=== PATIENT | female | born 1965 | race Caucasian/White ===

== ENCOUNTER → 2017-05-11 | Outpatient (CLI) | payer OTHER | END | disposition home or self-care (01) | LOC: CFH 08:19 → EDSTATUS 08:45 | PROVIDERS: ATTEND Orthopaedic Surgery | DX: S83.242A Other tear of medial meniscus, current injury, left knee, initial encounter (principal); X58.XXXA Exposure to other specified factors, initial encounter; Y93.89 Activity, other specified; Y92.89 Other specified places as the place of occurrence of the external cause; Y99.8 Other external cause status ==

== ENCOUNTER → 2017-09-24 | Outpatient (CLI) | payer OTHER ==
[~2017-09-24] MED LIST: CHOL5000 PO; MULT1TAB60 PO; PROG100C16 PO; VITAMIN PO; Vitamin A PO; [UNRECOGNIZED DRUG - REMARK] INJ
== END ==
LOC: STAR 09:38
PROVIDERS: ATTEND Orthopaedic Surgery
DX: Z02.9 Encounter for administrative examinations, unspecified (principal)

== ENCOUNTER 2017-10-01 16:40 | Day surgery (SDC) | payer OTHER ==
[~2017-10-01] VITALS: Ht 160 cm; Wt 62.7 kg
[~2017-10-01 16:40] MED LIST changes: +LIDOCAINE 1%, 2ML ONE
[2017-10-01] MEDS ORDERED: ROPIvacaine/PF 0.5%, 30 ML ONE (16:50)
[2017-10-01] MEDS ORDERED: EPINEPHRINE 1 MG/ML, 1ML ONE (16:50)
[2017-10-01] MEDS ORDERED: LIDOCAINE/PF 1%, 30ML ONE (16:50)
[2017-10-01] MEDS ORDERED: LACTATED RINGERS 1,000 ML IV SCH (17:10)
[2017-10-01 17:11] VITALS: BP 138/91
[2017-10-01] MEDS ORDERED: MIDAZOLAM 1 MG/ML, 2ML ONE (17:22)
[2017-10-01] MEDS ORDERED: FENTANYL PF 250 MCG/5ML ONE (17:24)
[2017-10-01] MEDS ORDERED: CEFAZOLIN 1,000 MG ONE (17:25)
[2017-10-01] MEDS ORDERED: ONDANSETRON 2MG/ML, 2ML ONE (17:25)
[2017-10-01] MEDS ORDERED: PROPOFOL 10 MG/ML, 20ML ONE (17:25)
[2017-10-01] MEDS ORDERED: DEXAMETHASONE 4 MG/ML, 1ML ONE (17:25)
[2017-10-01] MEDS ORDERED: LIDOCAINE GEL 2%, 5ML ONE (17:27)
[2017-10-01] MEDS ORDERED: LIDOCAINE 1%, 2ML SQ PRN (17:30)
[2017-10-01] MEDS ORDERED: HYDROmorphone 1 MG/ML, 1ML ONE (17:49)
[2017-10-01] MEDS ORDERED: OXYcodone 5 MG/5 ML ORAL.SOL UDC ONE (18:20)
[2017-10-01] MEDS ORDERED: FENTANYL PF 100 MCG/2ML ONE (18:20)
[2017-10-01] MEDS: FENTANYL PF 100 MCG/2ML IV PRN ×2 (18:24→18:37)
[2017-10-01] MEDS ORDERED: PROMETHAZINE 25 MG/ML, 1ML IV PRN (18:30)
[2017-10-01] MEDS ORDERED: OXYcodone 5 MG/5 ML ORAL.SOL UDC PO PRN (18:30)
[2017-10-01] MEDS ORDERED: HYDROmorphone 1 MG/ML, 1ML IV PRN (18:30)
[2017-10-01] MEDS ORDERED: ACETAMINOPHEN 325 MG TABLET PO PRN (18:30)
[2017-10-01] MEDS ORDERED: HYDROcodone/APAP 7.5-325MG/15ML UDC PO PRN (18:30)
[2017-10-01] MEDS ORDERED: ONDANSETRON 2MG/ML, 2ML IVPush PRN (18:30)
== END 2017-10-01 20:45 | disposition home or self-care (01) ==
LOC: OR 16:40 → 4NOR 19:34 → OR 20:45
PROVIDERS: ATTEND Orthopaedic Surgery
DX: S83.232A Complex tear of medial meniscus, current injury, left knee, initial encounter (principal); X58.XXXA Exposure to other specified factors, initial encounter; Y93.89 Activity, other specified; Y92.89 Other specified places as the place of occurrence of the external cause; Y99.8 Other external cause status; M94.262 Chondromalacia, left knee; M65.862 Other synovitis and tenosynovitis, left lower leg
CPT/HCPCS: 29881; J0171; J0690; J1100; J1170; J2250; J2405; J2704; J2795; J3010; J3490; J7120

== ENCOUNTER → 2018-01-02 | Outpatient (CLI) | payer OTHER ==
[~2018-01-02] MED LIST changes: -LIDOCAINE 1%, 2ML ONE
[2018-01-02 09:12] LABS: BASOPHILS # (AUTO) 0.04 x10^3/uL (0-0.1); BASOPHILS % (AUTO) 1 % (0-1); EOSINOPHILS # (AUTO) 0.06 x10^3/uL (0-0.4); EOSINOPHILS % (AUTO) 1 % (1-7); LYMPHOCYTES # (AUTO) 1.69 x10^3/uL (1-3.4); LYMPHOCYTES % (AUTO) 27 % (22-44); MD NO; MEAN CORPUSCULAR HEMOGLOBIN 33.6 pg (27.0-34.8); MEAN CORPUSCULAR HGB CONC 34.9 g/dL (32.4-35.8); MEAN CORPUSCULAR VOLUME 96.1 fL (80-100); MEAN PLATELET VOLUME 8.4 fL (7.4-10.4); MONOCYTES % (AUTO) 8 % (2-9); NEUTROPHILS # (AUTO) 3.93 x10^3/uL (1.8-6.8); NEUTROPHILS % (AUTO) 63 % (42-75); PLATELET COUNT 360 x10^3/uL (130-400); RED BLOOD COUNT 4.42 x10^6/uL (3.82-5.3); RED CELL DISTRIBUTION WIDTH 12.3 % (9.6-15.2)
[2018-01-02 09:24] LABS: ALBUMIN 3.9 g/dL (3.4-5.0); ANION GAP 9 mmol/L (5-15); CALCIUM 9.1 mg/dL (8.5-10.1); CHLORIDE 105 mmol/L (98-107)
[2018-01-02 09:49] LABS: ALANINE AMINOTRANSFERASE 27 U/L (12-78); ALKALINE PHOSPHATASE 100 U/L (45-117); BILIRUBIN,TOTAL 0.6 mg/dL (0.2-1.0); CHOL/HDL RATIO 3.6; CHOLESTEROL, TOTAL 209 mg/dL (140-239); CREATININE 0.67 mg/dL (0.55-1.02); HDL CHOLESTEROL (DIRECT) 58 mg/dL (40-60); TOTAL PROTEIN 7.8 g/dL (6.4-8.2); TRIGLYCERIDES 100 mg/dL (50-200); VLDL CHOLESTEROL 20 mg/dL (0-25)
[2018-01-02 09:50] LABS: HDL CHOL % 28 % (28-40); LDL CHOLESTEROL,CALCULATED 131 mg/dL (54-169); LDL/HDL RATIO 2.3 (0.5-3.0)
== END | disposition home or self-care (01) ==
LOC: LAB 08:44
PROVIDERS: ATTEND Specialist
DX: E55.9 Vitamin D deficiency, unspecified (principal); E34.9 Endocrine disorder, unspecified; E78.5 Hyperlipidemia, unspecified; R53.83 Other fatigue
CPT/HCPCS: 36415; 80053; 80061; 82306; 82607; 82670; 83001; 84403; 84436; 84443; 84481; 85025; 86376

== ENCOUNTER → 2018-06-18 | Outpatient (CLI) | payer OTHER | END | disposition home or self-care (01) | LOC: CFH 13:30 | PROVIDERS: ATTEND Physician Assistant Surgical | DX: S83.231A Complex tear of medial meniscus, current injury, right knee, initial encounter (principal); M25.461 Effusion, right knee; M71.21 Synovial cyst of popliteal space [Baker], right knee ==

== ENCOUNTER → 2018-08-14 | Outpatient (CLI) | payer OTHER ==
[~2018-08-14] MED LIST changes: +ACET-1600 PO; +CEFAZOLIN 1,000 MG ONE; +DEXAMETHASONE 4 MG/ML, 1ML ONE; +FENTANYL PF 100 MCG/2ML ONE; +IBUP-1223 PO; +MIDAZOLAM 1 MG/ML, 2ML ONE; +ONDANSETRON 2MG/ML, 2ML ONE; +PROPOFOL 10 MG/ML, 20ML ONE
== END | disposition home or self-care (01) ==
LOC: STAR 08:00
PROVIDERS: ATTEND Orthopaedic Surgery
DX: Z02.9 Encounter for administrative examinations, unspecified (principal)

== ENCOUNTER 2018-08-21 07:55 | Day surgery (SDC) | payer OTHER ==
[~2018-08-21] VITALS: Ht 160 cm; Wt 68.0 kg
[~2018-08-21 07:55] MED LIST changes: -CEFAZOLIN 1,000 MG ONE; -DEXAMETHASONE 4 MG/ML, 1ML ONE; -FENTANYL PF 100 MCG/2ML ONE; -MIDAZOLAM 1 MG/ML, 2ML ONE; -ONDANSETRON 2MG/ML, 2ML ONE; -PROPOFOL 10 MG/ML, 20ML ONE
[2018-08-21] MEDS ORDERED: LACTATED RINGERS 1,000 ML IV SCH (08:15)
[2018-08-21 08:18] VITALS: BP 139/100
[2018-08-21] MEDS ORDERED: DEXAMETHASONE 4 MG/ML, 1ML ONE (09:28)
[2018-08-21] MEDS ORDERED: PROPOFOL 10 MG/ML, 20ML ONE (09:28)
[2018-08-21] MEDS ORDERED: CEFAZOLIN 1,000 MG ONE (09:28)
[2018-08-21] MEDS ORDERED: KETOROLAC 30 MG/1 ML ONE (09:28)
[2018-08-21] MEDS ORDERED: ONDANSETRON 2MG/ML, 2ML ONE (09:28)
[2018-08-21] MEDS ORDERED: ONDANSETRON 2MG/ML, 2ML IV PRN (09:30)
[2018-08-21] MEDS ORDERED: DIAZEPAM 5 MG/ML, 2ML IVPush PRN (09:30)
[2018-08-21] MEDS ORDERED: FENTANYL PF 100 MCG/2ML IV PRN (09:30)
[2018-08-21] MEDS ORDERED: ACETAMINOPHEN 325 MG TABLET PO PRN (09:30)
[2018-08-21] MEDS ORDERED: PROMETHAZINE 25 MG/ML, 1ML IV PRN (09:30)
[2018-08-21] MEDS ORDERED: ONDANSETRON ODT 8 MG PO PRN (09:30)
[2018-08-21] MEDS ORDERED: OXYcodone 5 MG/5 ML ORAL.SOL UDC PO PRN (09:30)
== END 2018-08-21 11:50 | disposition home or self-care (01) ==
LOC: OUT 07:55
PROVIDERS: ATTEND Orthopaedic Surgery
DX: S83.231A Complex tear of medial meniscus, current injury, right knee, initial encounter (principal); M94.261 Chondromalacia, right knee; X58.XXXA Exposure to other specified factors, initial encounter; Y93.9 Activity, unspecified; Y92.89 Other specified places as the place of occurrence of the external cause; Y99.8 Other external cause status; Z88.8 Allergy status to other drugs, medicaments and biological substances; Z79.899 Other long term (current) drug therapy
CPT/HCPCS: 29881; J0690; J1100; J1885; J2405; J2704; J3010; J7120; J2250

== ENCOUNTER 2019-06-19 08:19 | Outpatient (CLI) | payer OTHER | END 2019-06-19 23:59 | disposition home or self-care (01) | LOC: LAB 08:19 | PROVIDERS: ATTEND Specialist | DX: E34.9 Endocrine disorder, unspecified (principal); E55.9 Vitamin D deficiency, unspecified; E78.5 Hyperlipidemia, unspecified; R53.83 Other fatigue | CPT/HCPCS: 36415; 80053; 80061; 82306; 82607; 82670; 83001; 84403; 84436; 84443; 84481; 85025; 86376 ==

== ENCOUNTER → 2020-06-11 | Outpatient (CLI) | payer OTHER ==
[~2020-06-11] MED LIST changes: +MULT-449 PO; -MULT1TAB60 PO
[2020-06-11 09:49] LABS: BASOPHILS # (AUTO) 0.02 x10^3/uL (0-0.1); BASOPHILS % (AUTO) 0 % (0-1); EOSINOPHILS # (AUTO) 0.24 x10^3/uL (0-0.4); EOSINOPHILS % (AUTO) 3 % (1-7); LYMPHOCYTES % (AUTO) 28 % (22-44); MD NO; MEAN CORPUSCULAR HEMOGLOBIN 33.2 pg (27.0-34.8); MEAN CORPUSCULAR HGB CONC 33.2 g/dL (32.4-35.8); MEAN CORPUSCULAR VOLUME 99.9 fL (80-100); MEAN PLATELET VOLUME 8.3 fL (7.4-10.4); MONOCYTES # (AUTO) 0.53 x10^3/uL (0.2-0.8); MONOCYTES % (AUTO) 8 % (2-9); NEUTROPHILS # (AUTO) 4.17 x10^3/uL (1.8-6.8); NEUTROPHILS % (AUTO) 61 % (42-75); PLATELET COUNT 321 x10^3/uL (130-400); RED BLOOD COUNT 4.32 x10^6/uL (3.82-5.3)
[2020-06-11 09:59] LABS: ANION GAP 7 mmol/L (5-15); CALCIUM 9.2 mg/dL (8.5-10.1); CHLORIDE 107 mmol/L (98-107)
[2020-06-11 10:23] LABS: ALANINE AMINOTRANSFERASE 38 U/L (12-78); ALKALINE PHOSPHATASE 75 U/L (45-117); BILIRUBIN,TOTAL 0.7 mg/dL (0.2-1.0); CHOL/HDL RATIO 3.7; CHOLESTEROL, TOTAL 239 mg/dL (140-239); CREATININE 0.76 mg/dL (0.55-1.02); HDL CHOL % 27 % (28-40); HDL CHOLESTEROL (DIRECT) 65 mg/dL (40-60); LDL CHOLESTEROL,CALCULATED 155 mg/dL (54-169); LDL/HDL RATIO 2.4 (0.5-3.0); TOTAL PROTEIN 7.5 g/dL (6.4-8.2); TRIGLYCERIDES 94 mg/dL (50-200); VLDL CHOLESTEROL 19 mg/dL (0-25)
[2020-06-11 10:24] LABS: T4 (THYROXINE) 8.8 mcg/dL (4.8-13.9)
== END | disposition home or self-care (01) ==
LOC: LAB 09:28
PROVIDERS: ATTEND Specialist
DX: E55.9 Vitamin D deficiency, unspecified (principal); E78.5 Hyperlipidemia, unspecified; E34.9 Endocrine disorder, unspecified; R53.83 Other fatigue
CPT/HCPCS: 36415; 80053; 80061; 82306; 82607; 82670; 83001; 84403; 84436; 84443; 84481; 85025; 86376

== ENCOUNTER 2021-04-07 23:04 | Observation (INO) | payer OTHER ==
[~2021-04-07] VITALS: Ht 167.6 cm; Wt 70.0 kg
[2021-04-07] MEDS ORDERED: ONDANSETRON 2MG/ML, 2ML ONE (23:23)
[2021-04-07] MEDS ORDERED: ASPIRIN 81 MG TABLET CHEW ONE (23:23)
[2021-04-07] MEDS ORDERED: ONDANSETRON 2MG/ML, 2ML IVPush ONE (23:30)
[2021-04-07] MEDS ORDERED: SODIUM CHLORIDE FLUSH 10ML SYR IVF ONE (23:30)
[2021-04-07] MEDS ORDERED: SODIUM CHLORIDE 0.9% 1,000ML IVBOLUS ONE (23:30)
[2021-04-07] MEDS ORDERED: ASPIRIN 81 MG TABLET CHEW PO ONE (23:30)
--- NOTE | 2021-04-07 23:40 | NUR ---
pt presented to ER with intermittent chest pain, radiating to the left arm, with nausea and dry heaves, no history of cardiac disease, reports increase in social stress lately, has been taking excedrin 3 times a day daily for years
[2021-04-07 23:42] LABS: BASOPHILS % (AUTO) 1 % (0-1); EOSINOPHILS % (AUTO) 2 % (1-7); LYMPHOCYTES % (AUTO) 31 % (22-44); MEAN CORPUSCULAR HEMOGLOBIN 34.6 pg (27.0-34.8); MONOCYTES % (AUTO) 8 % (2-9); NEUTROPHILS % (AUTO) 58 % (42-75); PLATELET COUNT 309 x10^3/uL (130-400)
--- NOTE | 2021-04-07 23:48 | NUR ---
ASPIRIN HELD BECAUSE PT TAKES EXCEDRIN DAILY
[2021-04-07 23:56] LABS: ALANINE AMINOTRANSFERASE 38 U/L (12-78); ALBUMIN 4.1 g/dL (3.4-5.0); ANION GAP 13 mmol/L (5-15); CALCIUM 9.1 mg/dL (8.5-10.1); CHLORIDE 108 mmol/L (98-107); CREATININE 0.66 mg/dL (0.55-1.02)
[2021-04-08] MEDS ORDERED: MAALOX/HYOSCYAMINE/LIDOCAINE 45 ML BTL PO ONE
[2021-04-08 00:01] LABS: ALKALINE PHOSPHATASE 58 U/L (45-117); BILIRUBIN,TOTAL 0.2 mg/dL (0.2-1.0); TOTAL PROTEIN 7.6 g/dL (6.4-8.2); TROPONIN I < 0.015 ng/mL (0.000-0.045)
[2021-04-08] MEDS ORDERED: MAALOX/HYOSCYAMINE/LIDOCAINE 45 ML BTL ONE (00:44)
[2021-04-08] MEDS ORDERED: LORazepam 2 MG/ML, 1ML ONE (00:45)
--- NOTE | 2021-04-08 00:53 | NUR ---
MD ordered 1mg of IV ativan, pt only wanted 0.5mg, 0.5mg administered
[2021-04-08] MEDS ORDERED: SODIUM CHLORIDE FLUSH 10ML SYR IVF PRN (01:00)
[2021-04-08] MEDS ORDERED: LORazepam 2 MG/ML, 1ML IVPush ONE (01:00)
--- NOTE | 2021-04-08 01:38 | NUR ---
THIS RN CALLED AND GAVE REPORT TO JOSHUA
[2021-04-08 02:00] VITALS: BP 117/74
[2021-04-08 02:01] VITALS: BP 117/74
[2021-04-08] MEDS ORDERED: POLYETHYLENE GLYCOL 17 GM PACKET PO PRN (02:30)
[2021-04-08] MEDS ORDERED: DOCUSATE 100 MG CAPSULE PO PRN (02:30)
[2021-04-08] MEDS ORDERED: morphine SULFATE 10 MG/ML, 1ML IVPush PRN (02:30)
[2021-04-08] MEDS ORDERED: ONDANSETRON 2MG/ML, 2ML IVPush PRN (02:30)
[2021-04-08] MEDS ORDERED: SODIUM CHLORIDE 0.9% 1,000 ML IV SCH (02:30)
[2021-04-08] MEDS ORDERED: hydrALAzine 20 MG/ML, 1ML IVPush PRN (02:30)
[2021-04-08] MEDS ORDERED: ONDANSETRON ODT 4 MG PO PRN (02:30)
[2021-04-08] MEDS ORDERED: OXYcodone IR 5MG TABLET PO PRN (02:30)
[2021-04-08] MEDS ORDERED: ENOXAPARIN 40 MG/0.4 ML SQ SCH (02:30)
[2021-04-08] MEDS ORDERED: ACETAMINOPHEN 325 MG TABLET PO PRN (02:30)
[2021-04-08] MEDS ORDERED: POTASSIUM CHLORIDE 20 MEQ TAB.ER.PRT PO ONE (02:30)
[2021-04-08] MEDS ORDERED: PROMETHAZINE 25 MG/ML, 1ML IM PRN (02:30)
[2021-04-08] MEDS ORDERED: BISACODYL 10 MG SUPP PR PRN (02:30)
[2021-04-08] MEDS ORDERED: NITROGLYCERIN 0.4 MG BOTTLE (25 TABS) SL PRN (03:00)
[2021-04-08 05:03] LABS: CHOLESTEROL, TOTAL 223 mg/dL (140-239); TRIGLYCERIDES 151 mg/dL (50-200); VLDL CHOLESTEROL 30 mg/dL (0-25)
[2021-04-08 05:07] LABS: CHOL/HDL RATIO 3.2; HDL CHOL % 31 % (28-40); HDL CHOLESTEROL (DIRECT) 69 mg/dL (40-60); LDL CHOLESTEROL,CALCULATED 124 mg/dL (54-169); LDL/HDL RATIO 1.8 (0.5-3.0); TROPONIN I < 0.015 ng/mL (0.000-0.045)
[2021-04-08] MEDS ORDERED: ASPIRIN 81 MG TABLET EC PO SCH (06:00)
[2021-04-08 07:40] VITALS: BP 119/71
[2021-04-08 08:22] LABS: TROPONIN I < 0.015 ng/mL (0.000-0.045)
[2021-04-08 09:12] LABS: FREE T4 (FREE THYROXINE) 0.9 ng/dL (0.76-1.46)
[2021-04-08] MEDS ORDERED: POTASSIUM CHLORIDE 40 MEQ in SODIUM CHLORIDE 0.9% 250 ML IV ONE (10:00)
[2021-04-08] MEDS ORDERED: POTASSIUM CHLORIDE 40 MEQ in SODIUM CHLORIDE 0.9% 500 ML IV ONE (11:30)
[2021-04-08 13:10] LABS: MICROSCOPIC NOT IND
[2021-04-08 13:48] VITALS: BP 133/75
== END 2021-04-08 17:13 | disposition home or self-care (01) ==
LOC: ED 04-08 01:26 → INTOOBSV 04-08 01:46 → EDIP 04-08 01:46 → 5SO 04-08 01:53
PROVIDERS: ADMIT Internal Medicine; ATTEND Family Medicine
DX: R07.89 Other chest pain (principal); E87.6 Hypokalemia; F41.9 Anxiety disorder, unspecified; I20.0 Unstable angina; Q21.1 Atrial septal defect; Z72.89 Other problems related to lifestyle; Z79.899 Other long term (current) drug therapy
CPT/HCPCS: 36415; 71045; 78452; 80053; 80061; 81003; 83036; 83735; 84100; 84439; 84443; 84481; 84484; 85025; 85379; 93005; 93017; 93306; 96361; 96365; 96366; 96372; 96375; 99285; A9502; G0378; J1650; J2060; J2405; J3480; J7030; J7040; J7050

== ENCOUNTER 2021-07-20 07:54 | Outpatient (CLI) | payer OTHER ==
[2021-07-20 08:19] LABS: BASOPHILS % (AUTO) 1 % (0-1); EOSINOPHILS % (AUTO) 3 % (1-7); LYMPHOCYTES % (AUTO) 32 % (22-44); MEAN CORPUSCULAR HEMOGLOBIN 34.2 pg (27.0-34.8); MEAN CORPUSCULAR HGB CONC 34.5 g/dL (32.4-35.8); MEAN PLATELET VOLUME 8.2 fL (7.4-10.4); MONOCYTES % (AUTO) 8 % (2-9); NEUTROPHILS % (AUTO) 56 % (42-75); PLATELET COUNT 309 x10^3/uL (130-400); RED BLOOD COUNT 4.37 x10^6/uL (3.82-5.3)
[2021-07-20 08:31] LABS: ALBUMIN 3.9 g/dL (3.4-5.0); ANION GAP 6 mmol/L (5-15); CHLORIDE 105 mmol/L (98-107)
[2021-07-20 08:43] LABS: ALANINE AMINOTRANSFERASE 31 U/L (12-78); ALKALINE PHOSPHATASE 63 U/L (45-117); BILIRUBIN,TOTAL 0.8 mg/dL (0.2-1.0); CHOLESTEROL, TOTAL 260 mg/dL (140-239); CREATININE 0.71 mg/dL (0.55-1.02); HDL CHOL % 33 % (28-40); HDL CHOLESTEROL (DIRECT) 86 mg/dL (40-60); LDL CHOLESTEROL,CALCULATED 143 mg/dL (54-169); LDL/HDL RATIO 1.7 (0.5-3.0); T4 (THYROXINE) 8.6 mcg/dL (4.8-13.9); TOTAL PROTEIN 7.5 g/dL (6.4-8.2); TRIGLYCERIDES 154 mg/dL (50-200); VLDL CHOLESTEROL 31 mg/dL (0-25)
== END 2021-07-20 23:59 | disposition home or self-care (01) ==
LOC: LAB 07:54
PROVIDERS: ATTEND Physician Assistant
DX: E55.9 Vitamin D deficiency, unspecified (principal); E34.9 Endocrine disorder, unspecified; E78.5 Hyperlipidemia, unspecified; R53.83 Other fatigue
CPT/HCPCS: 36415; 80053; 80061; 82306; 82670; 83001; 84403; 84436; 84443; 84481; 85025; 86376